=== PATIENT | female | born 1955 | race Caucasian/White ===

== ENCOUNTER 2022-12-18 13:08 | Inpatient (IN) | payer MEDICARE, BC ==
[2022-12-18] MEDS ORDERED: Sodium Chloride 0.9% 1,000 ML IV ONE (13:42)
[2022-12-18 13:59] LABS: BASOPHILS ABSOLUTE AUTO 0.03 K/mm3 (0.01-0.08); BASOPHILS PERCENT AUTO 0.4 % (0.1-1.2); EOSINOPHILS ABSOLUTE AUTO 0.02 K/mm3 (0.04-0.36); EOSINOPHILS PERCENT AUTO 0.2 (0.7-5.8); HEMATOCRIT 42.9 % (34.1-44.9); HEMOGLOBIN 14.9 gm/dl (11.2-15.7); IMMATURE GRAN ABSOLUTE AUTO 0.02 K/mm3 (0.00-0.10); IMMATURE GRAN PERCENT AUTO 0.2 % (<=1.0); LYMPHOCYTES ABSOLUTE AUTO 1.15 K/mm3 (1.18-3.74); LYMPHOCYTES PERCENT AUTO 13.7 % (19.3-51.7); MEAN CORPUSCULAR HEMOGLOBIN 31.8 pg (25.6-32.2); MEAN CORPUSCULAR HGB CONC 34.7 g/dl (32.2-35.5); MEAN CORPUSCULAR VOLUME 91.5 fl (79.4-94.8); MEAN PLATELET VOLUME 10.1 fl (9.4-12.3); MONOCYTES ABSOLUTE AUTO 0.66 K/mm3 (0.24-0.36); MONOCYTES PERCENT AUTO 7.9 % (4.7-12.5); NEUTROPHILS PERCENT AUTO 77.6 % (34.0-71.1); PLATELET COUNT,PLT 543 K/mm3 (182-369); RED BLOOD CELL COUNT 4.69 M/mm3 (3.98-5.22); WHITE BLOOD CELL COUNT,WBC 8.38 K/mm3 (3.98-10.04)
[2022-12-18 14:04] LABS: ALBUMIN 3.9 g/dl (3.4-5.0); ANION GAP 19.1 (5-15); BILIRUBIN TOTAL 0.6 mg/dL (0.2-1.0); C-REACTIVE PROTEIN 0.3 mg/dL (<1.0); CALCIUM 9.9 mg/dL (8.5-10.1); CREATININE 0.5 mg/dL (0.55-1.02); EST CRCL DRUG DOSING (CG) 73.76 mL/min; MAGNESIUM 1.9 mg/dL (1.8-2.4); POTASSIUM,K 4.1 mEq/L (3.5-5.1)
[2022-12-18] MEDS ORDERED: Aspirin 81 MG Tab.Chew PO ONE (14:31)
[2022-12-18] MEDS ORDERED: Labetalol 100 MG/20 ML MDV IVPUSH ONE ×2 (16:14→17:52)
[2022-12-18] MEDS ORDERED: Acetaminophen 325 MG Tab PO PRN ×2 (16:54→17:18)
[2022-12-18] MEDS ORDERED: Morphine 2 MG/ML SYRINGE IVPUSH PRN (16:54)
[2022-12-18] MEDS ORDERED: Ondansetron 4 MG Tab.DIS PO PRN ×2 (16:54→17:18)
[2022-12-18] MEDS ORDERED: Heparin Sodium 5,000 Units/ML Vial SUBCUT SCH (17:00)
[2022-12-18] MEDS ORDERED: Sodium Chloride 0.9% 1,000 ML IV SCH (17:00)
[2022-12-18] MEDS: Sodium Chloride 0.9% 1,000 ML IV SCH (18:43)
[2022-12-18] MEDS: hydrALAZINE 10 MG Tab PO PRN ×2 (20:00→21:11)
[2022-12-18] MEDS: Heparin Sodium 5,000 Units/ML Vial SUBCUT SCH (21:09)
[2022-12-19 05:29] LABS: BASOPHILS ABSOLUTE AUTO 0.03 K/mm3 (0.01-0.08); BASOPHILS PERCENT AUTO 0.5 % (0.1-1.2); EOSINOPHILS ABSOLUTE AUTO 0.05 K/mm3 (0.04-0.36); EOSINOPHILS PERCENT AUTO 0.8 (0.7-5.8); HEMATOCRIT 37.4 % (34.1-44.9); HEMOGLOBIN 13.1 gm/dl (11.2-15.7); IMMATURE GRAN ABSOLUTE AUTO 0.01 K/mm3 (0.00-0.10); IMMATURE GRAN PERCENT AUTO 0.2 % (<=1.0); LYMPHOCYTES ABSOLUTE AUTO 1.28 K/mm3 (1.18-3.74); LYMPHOCYTES PERCENT AUTO 20.3 % (19.3-51.7); MEAN CORPUSCULAR HEMOGLOBIN 32.1 pg (25.6-32.2); MEAN CORPUSCULAR VOLUME 91.7 fl (79.4-94.8); MONOCYTES ABSOLUTE AUTO 0.79 K/mm3 (0.24-0.36); MONOCYTES PERCENT AUTO 12.5 % (4.7-12.5); NEUTROPHILS ABSOLUTE AUTO 4.16 K/mm3 (1.56-6.13); NEUTROPHILS PERCENT AUTO 65.7 % (34.0-71.1); PLATELET COUNT,PLT 453 K/mm3 (182-369); RED BLOOD CELL COUNT 4.08 M/mm3 (3.98-5.22); WHITE BLOOD CELL COUNT,WBC 6.32 K/mm3 (3.98-10.04)
[2022-12-19] MEDS: Heparin Sodium 5,000 Units/ML Vial SUBCUT SCH ×2 (05:46→13:17)
[2022-12-19 06:02] LABS: ALBUMIN 3.4 g/dl (3.4-5.0); ANION GAP 17.3 (5-15); BILIRUBIN TOTAL 0.6 mg/dL (0.2-1.0); CALCIUM 9.3 mg/dL (8.5-10.1); CREATININE 0.5 mg/dL (0.55-1.02); EST CRCL DRUG DOSING (CG) 74.52 mL/min; MAGNESIUM 1.7 mg/dL (1.8-2.4); PROTEIN TOTAL,TP 6.9 g/dl (6.4-8.2)
[2022-12-19 06:09] LABS: POTASSIUM,K 3.3 mEq/L (3.5-5.1)
[2022-12-19] MEDS: Sodium Chloride 0.9% 1,000 ML IV SCH (06:32)
[2022-12-19] MEDS ORDERED: Lisinopril 10 MG Tab PO SCH (09:00)
[2022-12-19] MEDS ORDERED: Potassium Chloride 20 MEQ Tab.ER PO ONE (10:30)
[2022-12-19] MEDS ORDERED: Magnesium Sulfate/Water 2 GM in Premix Bag 1 BAG IV ONE (10:30)
== END 2022-12-19 14:47 | disposition home or self-care (01) | DRG 305 ==
LOC: JD.ED 13:08 → JD.MS 16:29 → JD.ICU 19:01
PROVIDERS: ADMIT Internal Medicine; ATTEND Internal Medicine
DX: I16.0 Hypertensive urgency (principal); E44.0 Moderate protein-calorie malnutrition; R64 Cachexia; Z68.1 Body mass index [BMI] 19.9 or less, adult; E87.6 Hypokalemia; E83.42 Hypomagnesemia; R77.8 Other specified abnormalities of plasma proteins; I10 Essential (primary) hypertension; G89.29 Other chronic pain; M54.9 Dorsalgia, unspecified; Z90.710 Acquired absence of both cervix and uterus; Z86.16 Personal history of COVID-19; Z87.891 Personal history of nicotine dependence; Z88.5 Allergy status to narcotic agent; Z88.6 Allergy status to analgesic agent
CPT/HCPCS: 36415; 71045; 80053; 83735; 84484 ×2; 85025; 86140; 93005; 96361; 96374; 99285; A9270; J3490; J7030; 93010; 93307; 99223; 99239; 99284; J3475